=== PATIENT | male | born 1960 | race Hispanic/Latino ===

== ENCOUNTER 2016-09-14 21:56 | Emergency (ER) | payer OTHER ==
[2016-09-14 22:05] VITALS: BP 144/77; PULSE 68; RESP 16; TEMP 97.7; O2SAT 98
--- NOTE | 2016-09-14 22:36 | ED PDOC ---
Lower Extremity Pain/Injury Time Seen by Provider: 09/14/16 22:23 Chief Complaint (Nursing): Lower Extremity Problem/Injury History Per: Patient (Redness and warmth right inner thight x 1 day. Pt is s/p excison lipoma right thigh 3days ago. Chills last night but no fever) Onset/Duration Of Symptoms: Days (1) Current Symptoms Are (Timing): Still Present Severity: Moderate Pain Scale Rating Of: 1 Past Medical History Vital Signs: Last Vital Signs Temp 97.7 F 09/14/16 22:01 Pulse 68 09/14/16 22:01 Resp 16 09/14/16 22:01 BP 144/77 09/14/16 22:01 Pulse Ox 98 09/14/16 22:01 - Medical History PMH: CAD Denies: Arthritis, Asthma, Atrial Fibrillation, CHF, COPD, Diabetes, HIV, HTN , Hypercholesterolemia, Chronic Kidney Disease, Seizures Other PMH: Hemochromatosis - Surgical History Surgical History: Coronary Stent (x3 (4 years ago)) Denies: CABG, Pacemaker - Family History Family History: States: Unknown Family Hx Denies: CAD - Home Medications Home Medications: Ambulatory Orders Medication Instructions Recorded Aspirin [Adult Low Dose Aspirin EC] 81 mg PO DAILY 02/20/16 Atorvastatin [Lipitor] 10 mg PO DAILY 02/20/16 Clindamycin [Cleocin] 300 mg PO Q6 #40 cap 09/15/16 - Allergies Allergies/Adverse Reactions: Allergies Allergy/AdvReac Type Severity Reaction Status Date / Time clopidogrel bisulfate Allergy REDNESS Verified 09/14/16 22:00 [From Plavix] Review of Systems Constitutional: Positive for: Chills. Negative for: Fever Cardiovascular: Negative for: Chest Pain Respiratory: Negative for: Shortness of Breath Skin: Positive for: Other (Erythema right inner thigh) Physical Exam - Physical Exam Appears: Positive for: Non-toxic, No Acute Distress Skin: Positive for: Rash Extremity: Positive for: Other (Right inner thigh 6 cm x 6cm area of erythema surrounding surgical wound Warm, Not tender to palpation. No drainage from wound. No inguinal lymphadenopathy.). Negative for: Calf Tenderness - Laboratory Results Result Diagrams: 09/14/16 23:04 09/14/16 23:04 - ECG O2 Sat by Pulse Oximetry: 98 Disposition - Clinical Impression Clinical Impression: Cellulitis of right thigh - Patient ED Disposition Is Patient to be Admitted: Transfer of Care - Disposition Disposition: Transfer of Care Disposition Time: 00:00 Condition: STABLE Additional Instructions: Please apply warm moist compresses to area 5-6 times daily If symptoms worsen or you develop fever and/or chills please return to ED Please otherwise follow up with your treating surgeon on this coming Friday Prescriptions: Clindamycin [Cleocin] 300 mg PO Q6 #40 cap Instructions: Cellulitis (ED) Patient Signed Over To: Anival Sorto
[2016-09-14 23:07] LABS: BASO % 0.5 % (0.0-2.0); EOS # 0.1 K/uL (0.0-0.7); EOS % 1.2 % (0.0-4.0); HEMATOCRIT 43.9 % (35.0-51.0); LYMPH # 1.3 K/uL (1.0-4.3); LYMPH % 14.8 % (20.0-40.0); MEAN CELL VOLUME 92.8 fl (80.0-94.0); MEAN CORPUSCULAR HEMOGLOBIN 31.4 pg (27.0-31.0); MEAN CORPUSCULAR HGB CONC 33.8 g/dL (33.0-37.0); MEAN PLATELET VOLUME 8.5 fl (7.2-11.7); MONO # 0.7 K/uL (0.0-0.8); MONO % 8.3 % (0.0-10.0); NEUT # 6.5 K/uL (1.8-7.0); NEUT % 75.2 % (50.0-75.0); NRBC % 0.1 % (0.0-0.0); RED CELL DISTRIBUTION WIDTH 13.2 % (11.5-14.5); WHITE BLOOD COUNT 8.6 K/uL (4.8-10.8)
[2016-09-14 23:16] LABS: VENOUS BLOOD GAS BASE EXCESS -6.7 mmol/L (0.0-2.0); VENOUS BLOOD GAS PCO2 82 mmHg (40-60); VENOUS BLOOD PH 7.09 (7.32-7.43)
[2016-09-14 23:18] LABS: ALB/GLOB RATIO 1.4 (1.0-2.1); ALKALINE PHOSPHATASE 54 U/L (38-126); ALT/SGPT 31 U/L (21-72); AST/SGOT 26 U/L (17-59); BILIRUBIN,TOTAL 0.5 mg/dl (0.2-1.3); BLOOD UREA NITROGEN 23 mg/dl (9-20); CALCIUM 9.3 mg/dL (8.4-10.2); CARBON DIOXIDE 26 mmol/L (22-30); CHLORIDE 101 mmol/L (98-107); GFR AFRICAN-AMERICAN > 60; GLUCOSE,RANDOM 98 mg/dL (75-110); SODIUM 138 mmol/l (132-148); TOTAL PROTEIN 7.1 G/DL (6.3-8.2)
[2016-09-14] MEDS ORDERED: Sodium Chloride 0.9% 1,000 ML IV STA (23:19)
--- NOTE | 2016-09-15 01:35 | US ---
EXAM: US Duplex Right Lower Extremity Veins. CLINICAL HISTORY: 56 years old, male; Pain; Leg, upper; Right; Prior surgery; Surgery date: 3-7 days post-operative; Surgery type: Rt inner thigh lipoma removed as per pt; Additional info: R/O dvt TECHNIQUE: Real-time ultrasound scan of the veins of the right lower extremity with color Doppler flow, spectral waveform analysis and compression. COMPARISON: No relevant prior studies available. FINDINGS: Deep veins: Normal color and spectral Doppler flow. Normal compressibility. No deep vein thrombosis from common femoral to popliteal vein. Superficial veins: No thrombosis. Soft tissues: No popliteal cyst. IMPRESSION: 1. No evidence of DVT within RIGHT lower extremity. 2. Incidental/non-acute findings are described above.
[2016-09-15 01:41] LABS: VENOUS BLOOD GAS BASE EXCESS -3.6 mmol/L (0.0-2.0); VENOUS BLOOD GAS PCO2 78 mmHg (40-60); VENOUS BLOOD PH 7.15 (7.32-7.43)
--- NOTE | 2016-09-15 02:11 | ED PDOC ---
- Laboratory Results Result Diagrams: 09/14/16 23:04 09/14/16 23:04 - ECG O2 Sat by Pulse Oximetry: 98 Medical Decision Making Medical Decision Making: Patient s/o to this provider by Dr Zimmerman at 00:00; pending U/S and repeat Lactate Venous Doppler of LE shows no abnormalities Labs reviewed show no clinically significant abnormalities and Lactate level has normalized to 0.7 after IV fluids Patient offered admission/observation status which he has declines in favor of trial of outpatient antibiotics Patient has committed to return to ED for any worsening and/or deterioration. he will otherwise follow up with [facility] surgeon on Friday Dx Cellulitis (post-operative) Rx Cleocin, Warm Compresses Disposition - Clinical Impression Clinical Impression: Cellulitis of right thigh - POA Present On Arrival: Surgical Site Infection - Disposition Disposition: Routine/Home Disposition Time: 01:40 Condition: STABLE Additional Instructions: Please apply warm moist compresses to area 5-6 times daily If symptoms worsen or you develop fever and/or chills please return to ED Please otherwise follow up with your treating surgeon on this coming Friday Prescriptions: Clindamycin [Cleocin] 300 mg PO Q6 #40 cap Instructions: Cellulitis (ED)
== END 2016-09-15 02:14 | disposition home or self-care (01) ==
LOC: H.ER 21:56
DX: L03.115 Cellulitis of right lower limb (principal); I25.10 Atherosclerotic heart disease of native coronary artery without angina pectoris

== ENCOUNTER 2016-11-10 16:32 | Emergency (ER) | payer OTHER ==
[2016-11-10 16:39] VITALS: BP 139/72; PULSE 52; RESP 18; TEMP 97.3; O2SAT 97
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
== END 2016-11-10 17:15 | disposition home or self-care (01) ==
LOC: H.ER 16:32
DX: S16.1XXA Strain of muscle, fascia and tendon at neck level, initial encounter (principal); V43.52XA Car driver injured in collision with other type car in traffic accident, initial encounter; Y92.410 Unspecified street and highway as the place of occurrence of the external cause; E78.00 Pure hypercholesterolemia, unspecified; I25.10 Atherosclerotic heart disease of native coronary artery without angina pectoris; Z79.82 Long term (current) use of aspirin; Z95.5 Presence of coronary angioplasty implant and graft